=== PATIENT | male | born 1980 | race Caucasian/White ===

== ENCOUNTER 2016-06-23 10:03 | Emergency (ER) | payer OTHER ==
[~2016-06-23] VITALS: Ht 200.7 cm; Wt 140.6 kg
[2016-06-23 10:12] VITALS: BP 116/76
--- NOTE | 2016-06-23 10:28 | PHYS DOC ---
General Chief Complaint: DENTAL PROBLEM Stated Complaint: DENTAL PAIN Time Seen by MD: 10:04 Source: patient Exam Limitations: no limitations Problems: History of Present Illness Initial Comments Pt is 36/M to ED c/o dental pain. Pt states right lower molar pain/swelling past few days. Was taking OTC ibuprofen helped initially now isn't managing pain. States he saw Dr Rader who according to pt prescribed no meds but recommended DDS eval. Pt states there is a month wait to get in to DDS so came here. Pain localized to right lower molar with some gum tenderness no jaw/bone tenderness. No fever/malaise/ RANGEL/neck stiffness/n/v/myalgias. Tried also OTC "putty" to cover painful tooth which has helped some. Timing/Duration: gradual, last week Severity: severe Location: dental Prearrival Treatment: over the counter meds Modifying Factors: worse with coughing Associated Symptoms: tooth pain Allergies: Coded Allergies: acetaminophen (Verified Allergy, Unknown, Itching, 06/23/16) hydrocodone (Verified Allergy, Unknown, Itching, 06/23/16) Past Medical History Medical History: other (PTSD) Surgical History: noncontributory Social History Smoker: non-smoker Alcohol: none Drugs: none Constitutional: denies chills, denies diaphoresis, denies fever, denies malaise Ears: denies dizziness, denies pain, denies tinnitus Nose: denies clots, denies congestion, denies epistaxis Mouth: see HPI Throat: denies pain, denies discharge, denies neck stiffness Respiratory: denies cough, denies shortness of breath Cardiovascular: denies chest pain, denies syncope Gastrointestinal: denies diarrhea, denies nausea, denies vomiting Neurological: denies headache, denies numbness, denies paresthesia Physical Exam General Appearance: no apparent distress, obese Eyes: bilateral eye normal inspection, bilateral eye PERRL, bilateral eye EOMI Nose: normal inspection Mouth/Throat: other (R post lower molar with apparent OTC dental preparation, mild gingival red/swelling no purulence no bony TTP) Neck: supple, trachea midline Cardiovascular/Respiratory: normal peripheral pulses, no respiratory distress Neurologic/Psychiatric: senior foreman II-XII nml as tested, no motor/sensory deficits, alert, normal mood/affect, oriented x 3 Skin: normal color, warm/dry Orders, Labs, Meds R lower molar tried OTC paste some relief Departure Time of Disposition: 10:25 Disposition: 01 HOME, SELF-CARE Diagnosis: dental abscess Condition: GOOD Patient Instructions: Dental Abscess Additional Instructions: [place], floss, gargle/rinse with listerine three times daily. Rx: amoxicillin, percocet 5mg #10, naprosyn Take meds with food. You must follow up with a dentist for resolution of this condition. As discussed, ED staff will provide you information regarding [facility] , [facility], and [facility]. Use these resources as needed, follow up with dentist AVANI. Return to ED with new or changing symptoms. INDER LEVY DO June 23, 2016 10:28
[2016-06-23] MEDS ORDERED: NAPR500T PO (10:30)
[2016-06-23] MEDS ORDERED: AMOX875T PO (10:30)
[2016-06-23] MEDS ORDERED: OXYC-323 PO (10:30)
== END 2016-06-23 10:36 | disposition home or self-care (01) ==
LOC: ER 10:03
DX: K04.7 Periapical abscess without sinus (principal); F43.10 Post-traumatic stress disorder, unspecified; Z88.6 Allergy status to analgesic agent; Z88.5 Allergy status to narcotic agent
CPT/HCPCS: 99283